=== PATIENT | female | born 1955 | race African-American/Black ===

== ENCOUNTER 2016-07-21 16:37 | Emergency (ER) | payer OTHER ==
[~2016-07-21] VITALS: Ht 165.1 cm; Wt 75.0 kg
[2016-07-21 16:39] VITALS: BP 140/77; PULSE 101; RESP 18; TEMP 98.6; O2SAT 94
--- NOTE | 2016-07-21 17:16 | PD ---
HPI Chief Complaint: Cold / Flu Symptoms Time Seen by Provider: 17:16 Travel History International Travel<30 days: No Contact w/Intl Traveler<30days: No Traveled to known affect area: No History of Present Illness HPI 60-year-old female presents to the emergency Department with complaint of nasal congestion, body aches and cough since yesterday. Reports fever of 101.0 last night. History of COPD. Does not use an inhaler. Reports chest tightness and feeling short of breath that is worse with exertion. Denies shortness of breath while at rest. Denies chest pain. Denies history of DVT or PE. Denies leg edema. Denies hemoptysis. Denies sore throat or ear pain. Negative abdominal pain, nausea, vomiting. Has taken ibuprofen for symptom relief. Has not taking any other medications or tried any other treatments to alleviate her symptoms. Allergies to aspirin. History of COPD and hypertension. No other modifying factors or associated signs and symptoms. PFSH Past Medical History Arthritis: Yes Asthma: No Autoimmune Disease: No Blood Disorders: No Anxiety: No Depression: No Heart Rhythm Problems: No Cancer: No Cardiac Catheterization: Yes Cardiovascular Problems: Yes High Cholesterol: Yes Chemotherapy: No Chest Pain: Yes (prior to heart attack and occasionally post stent placement) Congestive Heart Failure: No COPD: No Cerebrovascular Accident: No Coronary Artery Disease: Yes Diabetes: No Diminished Hearing: No Endocrine: No Gastrointestinal Disorders: Yes (diarrhea after eating) GERD: No Glaucoma: No Genitourinary: No Headaches: No Hepatitis: No Hiatal Hernia: No Hypertension: Yes Immune Disorder: No Implanted Vascular Access Dvce: No Kidney Stones: No Musculoskeletal: Yes (Pt states her hands and feet ache and get stiff on occasion. ) Neurologic: No Psychiatric: No Reproductive: Yes Respiratory: Yes (Shortness of breath) Immunizations Current: No Migraines: Yes Myocardial Infarction: Yes Radiation Therapy: No Renal Failure: No Seizures: No Sickle Cell Disease: No Sleep Apnea: Yes Thyroid Disease: No Ulcer: No PNEUMOCCOCAL Vaccine (Year): 3 ?: Not Menopausal: Yes Ectopic : Yes (1980) Tubal Ligation: Yes Past Surgical History Abdominal Surgery: Yes ( polyp removal) AICD: No Appendectomy: No Arteriovenous Shunt: No Cardiac Surgery: Yes (stent placement) Cholecystectomy: Yes Coronary Stent: Yes (X 1) Ear Surgery: No Endocrine Surgery: No Eye Surgery: No Genitourinary Surgery: No Gynecologic Surgery: Yes (hysterectomy, Tubal ) Hysterectomy: Yes (2002) Insulin Pump: No Joint Replacement: No Oral Surgery: No Pacemaker: No Thoracic Surgery: No Other Surgery: Yes (gallbladdder, hystectomy, tubal pregnancies) Social History Alcohol Use: No Tobacco Use: Yes (05/20 PPD) Substance Use: No Allergies-Medications (Allergen,Severity, Reaction): Coded Allergies: Aspirin (Verified Allergy, Intermediate, Hives, 07/21/16) Reported Meds & Prescriptions Reported Meds & Active Scripts Active Nasonex Nasal [place] (Mometasone Furoate) 50 Mcg/Act Naspr 2 [place] EACH NARE DAILY PRN Tessalon Perles (Benzonatate) 100 Mg Cap 100 Mg PO TID PRN Deltasone (Prednisone) 20 Mg Tab 40 Mg PO DAILY 4 Days start 07/22/2016 Proair Hfa 8.5 GM Inh (Albuterol Sulfate) 90 Mcg/Act Aer 2 Puff INH Q4-6H PRN 108 mcg/actuation Review of Systems Except as stated in HPI: all other systems reviewed are Neg Physical Exam Narrative GENERAL: Well-nourished, well-developed female patient, in no acute distress SKIN: Warm and dry. No rash. HEAD: Atraumatic. Normocephalic. EYES: Pupils equal and round at 3 mm with brisk reaction. No scleral icterus. No injection or drainage. PERRLA. ENT: Mucosa pink and moist. No erythema or exudates. No uvular edema. No uvular , palatal, or tonsillar deviation. Airway patent. Nasal congestion. EARS: Bilateral pinnae and external canals appear within normal limits. Bilateral tympanic membranes without erythema, dullness or perforation. NECK: Trachea midline. No lymphadenopathy. CARDIOVASCULAR: Regular rate and rhythm. No murmur appreciated. RESPIRATORY: No accessory muscle use. Clear throughout with decreased lung sounds in bilateral bases to auscultation. Breath sounds equal bilaterally. No retractions or tachypnea. No Audible wheezing. GASTROINTESTINAL: Abdomen soft, non-tender, nondistended. Hepatic and splenic margins not palpable. Bowel sounds are active 4 quadrants. MUSCULOSKELETAL: No obvious deformities. No clubbing. No cyanosis. No edema. NEUROLOGICAL: Awake and alert. Oriented 3. No obvious cranial nerve deficits. Motor grossly within normal limits. Normal speech. Moves all extremities. 5/5 strength to all extremities. PSYCHIATRIC: Appropriate mood and affect; insight and judgment normal. Data Data Last Documented VS Vital Signs Date Time Temp Pulse Resp B/P Pulse Ox O2 Delivery O2 Flow Rate FiO2 07/21/16 16:39 98.6 101 18 140/77 94 Orders Chest, Single Ap (07/21/16 17:16) Prednisone (Deltasone) (07/21/16 17:30) Albuterol Neb (Albuterol Neb) (07/21/16 17:30) Influenzae A/B Antigen (07/21/16 17:16) Ibuprofen (Motrin) (07/21/16 17:30) MDM Medical Decision Making Medical Screen Exam Complete: Yes Emergency Medical Condition: Yes Medical Record Reviewed: Yes Differential Diagnosis Viral illness, COPD exacerbation, less likely PE Narrative Course 60-year-old female with cold/flu symptoms 2 days. Patient is afebrile and nontoxic appearing in the ER. She reports fever of 101.0 last night at home. History of COPD. Patient is in no acute distress and without retractions or tachypnea. Oxygen saturation is 94% on room air. Lungs are clear with decreased lung sounds bilateral bases. Albuterol nebulizer, Deltasone ordered. Chest x-ray ordered. Influenza ordered. 1801: Chest x-ray with no acute findings. 183: Influenza negative. Patient reports improvement in symptoms after breathing treatment. She denies chest tightness or shortness of breath. Lungs are clear and equal bilaterally with improved air flow. Heart rate recheck is approximately 80-90 bpm. Pro-air inhaler, Tessalon Perles, Deltasone, Nasonex nasal spray prescribed for home. Patient verbalizes understanding and agreement with treatment plan. Patient is medically cleared and stable for discharge. Discussed reasons to return to the emergency department. Instructed patient to follow up with primary care provider. Patient agrees with treatment plan. The patients vital signs are stable and the patient is stable for outpatient follow-up and treatment. Patient discharged home, stable and in no acute distress. Diagnosis Primary Impression: Acute bronchitis Qualified Code: J20.9 - Acute bronchitis, unspecified organism Referrals: Primary Care Physician Patient Instructions: Acute Bronchitis (ED), General Instructions, Safe Use of Cough and Cold Medicines (ED) Departure Forms: Tests/Procedures, Work Release Enter return to work date: Jul 23, 2016 Additional Instructions: Use Albuterol inhaler as prescribed Take oral steroids as prescribed and complete full course Use Tessalon Perles as prescribed to decrease coughing spasms [id number] decongestants or antihistamines as directed and as needed for symptom management Your cough can last 4-6 weeks Drink plenty of fluids to prevent dehydration Use hot air humidifier to decrease cough exacerbation Turn off ceiling fans and sleep with head of bed elevated Avoid triggers such as second hand smoke, dust, known allergens Follow-up with your primary care provider Return to the emergency department immediately with worsening of symptoms Scripts Mometasone Nasal [place] (Nasonex Nasal [place])50 Mcg/Act Naspr2 [place] EACH NARE DAILY PRN (NASAL CONGESTION) #1 BOTTLE Ref 0 Prov:Kera MatsonP 07/21/16 Benzonatate (Tessalon Perles)100 Mg [id number] Mg PO TID PRN (COUGH) #20 CAP Ref 0 Prov:Kera Matson 07/21/16 Prednisone (Deltasone)20 Mg Tab40 Mg PO DAILY 4 Days Ref 0 start 07/22/2016 Prov:Kera MatsonP 07/21/16 Albuterol 8.5 GM Inh (Proair Hfa 8.5 GM Inh)90 Mcg/Act Aer2 Puff INH Q4-6H PRN ( SOB/WHEEZING) #1 INHALER Ref 0 108 mcg/actuation Prov:Kera MatsonP 07/21/16 Disposition: 01 DISCHARGE HOME Condition: Stable Kera Matson Jul 21, 2016 17:16
[2016-07-21] MEDS ORDERED: RESP: ALBUTEROL 2.5 MG/3 ML NEB (SCH) INH ONE (17:30)
[2016-07-21] MEDS ORDERED: IBUPROFEN 800 MG TAB PO ONE (17:30)
[2016-07-21] MEDS ORDERED: predniSONE 20 MG TAB PO ONE (17:30)
--- NOTE | 2016-07-21 17:51 | RADRPT ---
EXAM DATE/TIME: 07/21/2016 17:23 [facility] COMPARISON: CHEST SINGLE AP, June 26, 2014, 21:09. INDICATIONS : Cough MEDICAL HISTORY : None. SURGICAL HISTORY : None. ENCOUNTER: Initial ACUITY: 1 day PAIN SCORE: 5/10 LOCATION: Bilateral chest FINDINGS: Cardiomegaly. Clear lungs. Degenerative changes of the spine. CONCLUSION: No acute disease. Harvinder Sumner MD on July 21, 2016 at 17:49 Board Certified Radiologist. This report was verified electronically.
[2016-07-21] MEDS ORDERED: ALBUAER3 INH (18:03)
[2016-07-21] MEDS ORDERED: MOME17I EACH NARE (18:03)
[2016-07-21] MEDS ORDERED: PRED-503 PO (18:03)
[2016-07-21] MEDS ORDERED: BENZ100 PO (18:03)
== END 2016-07-21 18:59 | disposition home or self-care (01) ==
LOC: NEPB 16:37
DX: J44.0 Chronic obstructive pulmonary disease with (acute) lower respiratory infection (principal); J20.9 Acute bronchitis, unspecified; I10 Essential (primary) hypertension; I25.10 Atherosclerotic heart disease of native coronary artery without angina pectoris; I25.2 Old myocardial infarction; F17.200 Nicotine dependence, unspecified, uncomplicated
CPT/HCPCS: 71010; 87804; 94664; 99283; J7512; J7613

== ENCOUNTER 2017-06-12 17:18 | Emergency (ER) | payer OTHER ==
[~2017-06-12] VITALS: Ht 157.5 cm; Wt 89.0 kg
[~2017-06-12 17:18] MED LIST: ALBUAER3 INH; BENZ100 PO; MOME17I EACH NARE; PRED-503 PO
[2017-06-12 17:19] VITALS: BP 134/80; PULSE 96; RESP 14; TEMP 98.4; O2SAT 95
[2017-06-12] MEDS ORDERED: SODIUM CHLORIDE 0.9% FLUSH 10 ML FLUSH IV FLUSH PRN (19:45)
[2017-06-12] MEDS ORDERED: SOD PHOSPHATE/SOD BIPHOSPHATE (ADULT) ENEMA 133ML RECTAL ONE (19:45)
[2017-06-12] MEDS ORDERED: DIATRIZOATE MEGLUM/DIATRIZOATE SOD 9 ML CUP PO ONE (19:45)
[2017-06-12 20:43] LABS: BASOPHIL # 0.1 TH/MM3 (0-0.2); BASOPHIL % 1.2 % (0.0-2.0); EOSINOPHIL # 0.3 TH/MM3 (0-0.4); HEMATOCRIT 38.4 % (35.0-46.0); HEMOGLOBIN 12.7 GM/DL (11.6-15.3); LYMPH % 31.1 % (9.0-44.0); LYMPHOCYTE # 2.1 TH/MM3 (1.0-4.8); MEAN CELL VOLUME 84.1 FL (80.0-100.0); MEAN CORPUSCULAR HEMOGLOBIN 27.9 PG (27.0-34.0); MEAN CORPUSCULAR HGB CONC 33.2 % (32.0-36.0); MEAN PLATELET VOLUME 7.4 FL (7.0-11.0); MONO % 2.7 % (0.0-8.0); MONOCYTE # 0.2 TH/MM3 (0-0.9); PLATELET COUNT 274 TH/MM3 (150-450); RED BLOOD COUNT 4.56 MIL/MM3 (4.00-5.30); RED CELL DISTRIBUTION WIDTH 13.4 % (11.6-17.2); WHITE BLOOD COUNT 6.6 TH/MM3 (4.0-11.0)
[2017-06-12 20:52] LABS: BICARBONATE 28.7 MEQ/L (21.0-32.0); CALCIUM 8.8 MG/DL (8.5-10.1); CREATININE 0.93 MG/DL (0.50-1.00)
[2017-06-12] MEDS ORDERED: IOHEXOL 350 MG/ML 10 ML VIAL (for RAD DIAG) IVCONTRAST ONE (21:30)
--- NOTE | 2017-06-12 21:50 | RADRPT ---
EXAM DATE/TIME: 06/12/2017 21:23 [facility] COMPARISON: No previous studies available for comparison. INDICATIONS : Patient complains of boils on rectum, fever and diarrhea. Evlauate for abscess. IV CONTRAST: 80 cc Omnipaque 350 (iohexol) IV ORAL CONTRAST: No oral contrast ingested. RADIATION DOSE: 15.40 CTDIvol (mGy) MEDICAL HISTORY : Cardiovascular disease. SURGICAL HISTORY : Cholecystectomy. Hysterectomy. ENCOUNTER: Initial ACUITY: 2 weeks PAIN SCALE: 6/10 LOCATION: buttock TECHNIQUE: Volumetric scanning of the pelvis was performed. Using automated exposure control and adjustment of t he mA and/or kV according to patient size, radiation dose was kept as low as reasonably achievable to obtain optimal diagnostic quality images. DICOM format image data is available electronically for review and comparison. FINDINGS: Mild subcutaneous induration and edema seen inferomedially of the right gluteal fold. This is well di stal to the perineum. No organize fluid collection is seen. No acute inflammatory changes are seen in the pelvic cavity. There are diverticula of the visualized sigmoid colon but no diverticulitis. Isch iorectal fossa is normal. Patient has had previous hysterectomy. CONCLUSION: Mild right gluteal cellulitis inferomedially without abscess. Americo Hughes MD on June 12, 2017 at 21:43 Board Certified Radiologist. This report was verified electronically.
[2017-06-12] MEDS ORDERED: CLIN150C14 PO (22:10)
--- NOTE | 2017-06-12 22:10 | PD ---
HPI Chief Complaint: Skin Problem Time Seen by Provider: 19:28 Travel History International Travel<30 days: No Contact w/Intl Traveler<30days: No Traveled to known affect area: No History of Present Illness HPI 61-year-old female complains of pain and induration in the region of the Botox. She thinks she might have an abscess. Duration about 1 day. No fever. Pain is worse with palpation. It's constant. It is moderately severe. No similar prior episodes. No blood in the stool or diarrhea. PFSH Past Medical History Arthritis: Yes Asthma: No Autoimmune Disease: No Blood Disorders: No Anxiety: No Depression: No Heart Rhythm Problems: No Cancer: No Cardiac Catheterization: Yes Cardiovascular Problems: Yes High Cholesterol: Yes Chemotherapy: No Chest Pain: Yes (prior to heart attack and occasionally post stent placement) Congestive Heart Failure: No COPD: No Cerebrovascular Accident: No Coronary Artery Disease: Yes Diabetes: No Diminished Hearing: No Endocrine: No Gastrointestinal Disorders: Yes (diarrhea after eating) GERD: No Glaucoma: No Genitourinary: No Headaches: No Hepatitis: No Hiatal Hernia: No Hypertension: Yes Immune Disorder: No Implanted Vascular Access Dvce: No Kidney Stones: No Musculoskeletal: Yes (Pt states her hands and feet ache and get stiff on occasion. ) Neurologic: No Psychiatric: No Reproductive: Yes Respiratory: Yes (Shortness of breath) Immunizations Current: No Migraines: Yes Myocardial Infarction: Yes Radiation Therapy: No Renal Failure: No Seizures: No Sickle Cell Disease: No Sleep Apnea: Yes Thyroid Disease: No Ulcer: No Tetanus Vaccination: Unknown PNEUMOCCOCAL Vaccine (Year): 3 ?: Not Menopausal: Yes : 2 Para: 1 Ectopic : Yes (1980) Tubal Ligation: Yes Past Surgical History Abdominal Surgery: Yes ( polyp removal) AICD: No Appendectomy: No Arteriovenous Shunt: No Cardiac Surgery: Yes (stent placement) Cholecystectomy: Yes Coronary Stent: Yes (X 1) Ear Surgery: No Endocrine Surgery: No Eye Surgery: No Genitourinary Surgery: No Gynecologic Surgery: Yes (hysterectomy, Tubal ) Hysterectomy: Yes (2002) Insulin Pump: No Joint Replacement: No Oral Surgery: No Pacemaker: No Thoracic Surgery: No Other Surgery: Yes (gallbladdder, hystectomy, tubal pregnancies) Social History Alcohol Use: No Tobacco Use: Yes (12 PPD) Substance Use: No Allergies-Medications (Allergen,Severity, Reaction): Coded Allergies: aspirin (Unverified Allergy, Intermediate, Hives, 06/12/17) Reported Meds & Prescriptions Reported Meds & Active Scripts Active Clindamycin (Clindamycin HCl) 150 Mg Cap 450 Mg PO TID 14 Days Review of Systems Except as stated in HPI: all other systems reviewed are Neg Physical Exam Narrative GENERAL: 61 yo F, WNWD RECTAL: Cellulitis along medial aspect of R gluteus. + Tenderness on rectal exam , potentially c/w abscess. SKIN: Warm and dry. HEAD: Atraumatic. Normocephalic. EYES: Pupils equal and round. No scleral icterus. No injection or drainage. NECK: Trachea midline. No JVD. CARDIOVASCULAR: Regular rate and rhythm. RESPIRATORY: No accessory muscle use. Clear to auscultation. Breath sounds equal bilaterally. GASTROINTESTINAL: Abdomen soft, non-tender, nondistended. Hepatic and splenic margins not palpable. MUSCULOSKELETAL: Extremities without clubbing, cyanosis, or edema. No obvious deformities. NEUROLOGICAL: Awake and alert. No obvious cranial nerve deficits. Motor grossly within normal limits. Five out of 5 muscle strength in the arms and legs. Normal speech. PSYCHIATRIC: Appropriate mood and affect; insight and judgment normal. Data Data Last Documented VS Vital Signs Date Time Temp Pulse Resp B/P (MAP) Pulse Ox O2 Delivery O2 Flow Rate FiO2 06/12/17 22:55 06/12/17 17:19 98.4 96 14 95 Orders Orders Basic Metabolic Panel (Bmp) (06/12/17 19:33) Complete Blood Count With Diff (06/12/17 19:33) Iv Access Insert/Monitor (06/12/17 19:33) Ecg Monitoring (06/12/17 19:33) Oximetry (06/12/17 19:33) Sodium Chloride 0.9% Flush (Ns Flush) (06/12/17 19:45) Ct Pelvis W Iv Contrast(Rout) (06/12/17 ) Fleets Enema (Adult) (Fleets Enema (Adul (06/12/17 19:45) Diatrizoate Liq ( Gastroview Liq) (06/12/17 19:45) Iohexol 350 Inj (Omnipaque 350 Inj) (06/12/17 21:30) Piperacil-Tazo 4.5 Gm Premix (Zosyn 4.5 (06/12/17 22:15) Ed Discharge Order (06/12/17 22:10) Acetamin-Hydrocod 325-5 Mg ([employer] 5-325 (06/12/17 23:00) Labs Laboratory Tests Test 06/12/17 20:00 White Blood Count 6.6 TH/MM3 Red Blood Count 4.56 MIL/MM3 Hemoglobin 12.7 GM/DL Hematocrit 38.4 % Mean Corpuscular Volume 84.1 FL Mean Corpuscular Hemoglobin 27.9 PG Mean Corpuscular Hemoglobin Concent 33.2 % Red Cell Distribution Width 13.4 % Platelet Count 274 TH/MM3 Mean Platelet Volume 7.4 FL Neutrophils (%) (Auto) 61.0 % Lymphocytes (%) (Auto) 31.1 % Monocytes (%) (Auto) 2.7 % Eosinophils (%) (Auto) 4.0 % Basophils (%) (Auto) 1.2 % Neutrophils # (Auto) 4.0 TH/MM3 Lymphocytes # (Auto) 2.1 TH/MM3 Monocytes # (Auto) 0.2 TH/MM3 Eosinophils # (Auto) 0.3 TH/MM3 Basophils # (Auto) 0.1 TH/MM3 CBC Comment DIFF FINAL Differential Comment Blood Urea Nitrogen 11 MG/DL Creatinine 0.93 MG/DL Random Glucose 91 MG/DL Calcium Level 8.8 MG/DL Sodium Level 138 MEQ/L Potassium Level 3.7 MEQ/L Chloride Level 105 MEQ/L Carbon Dioxide Level 28.7 MEQ/L Anion Gap 4 MEQ/L Estimat Glomerular Filtration Rate 75 ML/MIN MDM Medical Decision Making Medical Screen Exam Complete: Yes Emergency Medical Condition: Yes Medical Record Reviewed: Yes Differential Diagnosis abscess, cellulitis, sepsis Narrative Course CBC & BMP Diagram 06/12/17 20:00 Calcium Level 8.[address] 06/12/17 0000 Signed Impressions: Service Date/Time: May 21:23 - CONCLUSION: Mild right gluteal cellulitis inferomedially without abscess. Americo Hughes MD The patient is resting comfortably and feels better, is alert and in no distress. The patients results and examination findings were discussed. The repeat examination is unremarkable and benign. The history, exam, diagnostic testing, and current condition do not suggest any significant pathology to warrant further testing, continued ED treatment, admission, or surgical evaluation at this point. The vital signs have been stable. The patient does not have uncontrollable pain, intractable vomiting, or other significant symptoms. The patient's condition is stable and appropriate for discharge. The patient will pursue further outpatient evaluation with a primary care physician or other designated or consulting physician as indicated in the discharge instructions. The patient expressed understanding and was agreeable with this plan. Diagnosis Primary Impression: Cellulitis and abscess of buttock Referrals: Jose Mcgowan MD 1 day Med/Other Pt SpecificInfo: Prescription(s) given Scripts Clindamycin (Clindamycin) 150 Mg Cap 450 MG PO TID for Infection for 14 Days, CAP 0 Refills Prov: Clemente Granado MD 06/12/17 Disposition: 01 DISCHARGE HOME Condition: Stable Clemente Granado MD Jun 12, 2017 22:10
[2017-06-12] MEDS ORDERED: PIPERACIL-TAZO 4.5 GM PREMIX 100 ML IV ONE (22:15)
[2017-06-12] MEDS ORDERED: ACETAMINOPHEN/HYDROcodone 325 MG/5 MG TAB PO ONE (23:00)
== END 2017-06-12 23:07 | disposition home or self-care (01) ==
LOC: NEPD 17:18
DX: L03.115 Cellulitis of right lower limb (principal); L02.31 Cutaneous abscess of buttock
CPT/HCPCS: 72193; 80048; 85025; 96365; 99285; J2543; Q9963; Q9967

== ENCOUNTER 2018-05-31 12:22 | Inpatient (IN) ==
--- NOTE | 2018-05-31 12:52 | ED ---
HPI General Chief Complaint: Chest Pain Stated Complaint: Chest Pain Time Seen by Provider: 05/31/18 12:39 Source: patient Mode of arrival: ambulatory Limitations: no limitations History of Present Illness HPI narrative: 62-year-old female states she developed chest pain while she was sitting at [employer] it goes up into her neck and her arm on the left. It feels sharp. It is been constant. She states she also has numbness to her left lower face and her entire left arm and leg. She states she is also felt kind of weak over the past couple of days on that side. She states a couple years ago she had a stress test that was normal but denies other cardiac workup. She denies taking aspirin due to an allergy. She feels worse when she moves around. She denies other modifying factors. She denies any other concurrent complaints. Related Data Allergies Allergy/AdvReac Type Severity Reaction Status Date / Time aspirin Allergy Intermediate Hives Verified 05/31/18 12:45 Review of Systems ROS: all other systems reviewed are negative [facility] Medical History Medical History Diverticulitis (Acute) H/O: hysterectomy (Acute) Hypertension (Acute) Surgical History Surgical History Hx of cholecystectomy (Acute) Social History Social History Substance History: No History of Abuse Smoking Status: Current every day smoker Tobacco Type: Cigarettes How Often Do You Have a Drink Containing Alcohol: Never Recent Travel in [facility] within the Last 8 Weeks: No Recent Out of Country Travel within the Last 8 Weeks: No Immunization History Tetanus Immunization: Unsure Exam Narrative Exam Narrative: GENERAL: 62 y/o female in no apparent distress SKIN: Focused skin assessment warm/dry. HEAD: Atraumatic. Normocephalic. EYES: Pupils equal and round. No scleral icterus. No injection or drainage. ENT: No nasal bleeding or discharge. Mucous membranes pink and moist. NECK: Trachea midline. CARDIOVASCULAR: Regular rate and rhythm. RESPIRATORY: No accessory muscle use. Clear to auscultation. Breath sounds equal bilaterally. GASTROINTESTINAL: Abdomen soft, non-tender, nondistended. MUSCULOSKELETAL: No obvious deformities. No clubbing. No cyanosis. No edema. NEUROLOGICAL: Awake and alert. Decreased grasp on the left, 4 out of 5 to left lower extremity. Patient notes numbness to entire left side. Normal speech. PSYCHIATRIC: Appropriate mood and affect; insight and judgment normal. Course Reevaluation(s) Reevaluation #1: patient updated and agrees to admit Consultations Consultation #1: dr tucker agrees to admit Initial Documented Vital Signs Temperature 98.4 F 05/31/18 12:27 Pulse Rate 93 H 05/31/18 12:27 Respiratory Rate 20 05/31/18 12:27 Blood Pressure 177/77 H 05/31/18 12:27 Pulse Oximetry 98 05/31/18 12:27 Last Documented Vital Signs Temperature 98.4 F 05/31/18 12:27 Pulse Rate 77 05/31/18 13:40 Respiratory Rate 18 05/31/18 13:40 Blood Pressure 135/64 05/31/18 13:40 Pulse Oximetry 97 05/31/18 13:40 Medical Decision Making MDM Narrative Medical decision making narrative: We will check blood work, imaging and reevaluate. Patient with 2 days of weakness puts her outside the stroke alert window. Aspirin was held due to allergy. Will check workup and reevaluate Medical Screen Exam Complete: Yes Emergency Medical Condition: Yes Differential Diagnosis Differential Diagnosis: TIA, stroke, bleed, WI, gastritis Lab Data Result diagrams: 05/31/18 13:05 05/31/18 13:05 Lab Results 05/31/18 05/31/18 05/31/18 Range/Units 13:05 13:05 13:05 WBC 4.7 (4.0-11.0) th/mm3 RBC 4.77 (4.00-5.30) mil/mm3 Hgb 13.5 (11.6-15.3) gm/dL Hct 41.4 (35.0-46.0) % MCV 86.8 (80.0-100.0) fL MCH 28.2 (27.0-34.0) pg MCHC 32.5 (32.0-36.0) % RDW 13.8 (11.6-17.2) % Plt Count 295 (150-450) th/mm3 MPV 7.7 (7.0-11.0) fL Neut % (Auto) 53.9 (16.0-70.0) % Lymph % (Auto) 37.3 (9.0-44.0) % [place] % (Auto) 2.6 (0.0-8.0) % Eos % (Auto) 4.5 H (0.0-4.0) % Baso % (Auto) 1.7 (0.0-2.0) % Neut # (Auto) 2.5 (1.8-7.7) th/mm3 Lymph # (Auto) 1.7 (1.0-4.8) th/mm3 [place] # (Auto) 0.1 (0.0-0.9) th/mm3 Eos # (Auto) 0.2 (0.0-0.4) th/mm3 Baso # (Auto) 0.1 (0.0-0.2) th/mm3 WBC Differential . Differential Comment Auto diff final PT 10.0 (9.8-11.6) sec INR 1.0 Ratio APTT 28.9 (23.4-31.7) sec Sodium 140 (136-145) meq/L Potassium 3.9 (3.5-5.1) meq/L Chloride 110 H (98-107) meq/L Carbon Dioxide 22.2 (21.0-32.0) meq/L Anion Gap 8 (5-15) meq/L BUN 14 (7-18) mg/dL Creatinine 0.71 (0.50-1.00) mg/dL Estimated GFR Greater than 89 (>89) mL/min Random Glucose 90 (74-106) mg/dL Calcium 8.5 (8.5-10.1) mg/dL Magnesium 2.2 (1.5-2.5) mg/dL Total Bilirubin 0.3 (0.2-1.0) mg/dL AST 21 (15-37) U/L ALT 19 (10-53) U/L Alkaline Phosphatase 117 (45-117) U/L Total Creatine Kinase 70 (26-192) U/L Troponin I Less than 0.02 L (0.02-0.05) ng/mL Total Protein 7.7 (6.4-8.2) g/dL Albumin 3.3 L (3.4-5.0) g/dL Imaging Data Radiologist's impression: Chest X-Ray 05/31/18 12:39 CONCLUSION: 1. Hypoinflation with minimal atelectasis/scarring in the left lingula. Lungs are otherwise clear. 2. Heart size is upper limits of normal and well compensated Head CT 05/31/18 12:45 CONCLUSION: Negative exam. No change from prior. . Discharge Plan Discharge Disposition Patient Disposition: ED Admit(ED Internal Use Only) Discharge Order Discharge Orders: ED Use Only Admit Order (Routine); Ordered 05/31/18 Ordered By: Penny Toro Discharge Details Diagnosis: Chest pain, Numbness and tingling of left upper and lower extremity Physicians Team ED Provider: Penny Toro Primary Care Provider: Primary Care Annika Fischer Attending Provider: Ava Tucker Discharge Interventions Interventions: Vital Signs Last Done: 05/31/18 12:30 Status ED Status: Admitted Observation Patient
--- NOTE | 2018-05-31 12:59 | XR ---
EXAM DATE: 05/31/2018 12:55 PM EST AGE/SEX: 62 years / Female INDICATIONS: Chest pain. CLINICAL DATA: This is the patient's initial encounter. Patient reports that signs and symptoms have been present for 1 day and indicates a pain score of 8/10. MEDICAL/SURGICAL HISTORY: . Cardiovascular disease. SURGICAL HISTORY : Cholecystectomy. Hystere ctomy. . [place] [facility] [place]. . FINDINGS: A single AP view of the chest demonstrates the lungs to be symmetrically hypoinflated with some atele ctasis or scarring in the left lingula. Lungs are otherwise clear. Accounting for low lung volumes, h eart size is upper limits of normal and well compensated. Osseous structures are intact.. CONCLUSION: 1. Hypoinflation with minimal atelectasis/scarring in the left lingula. Lungs are otherwise clear. 2. Heart size is upper limits of normal and well compensated Electronically signed by: Kervin Bennett MD Board Certified Radiologist 05/31/2018 12:58 PM EST
[2018-05-31 13:31] LABS: Baso # (Auto) 0.1 th/mm3 (0.0-0.2); Baso % (Auto) 1.7 % (0.0-2.0); Eos # (Auto) 0.2 th/mm3 (0.0-0.4); Eos % (Auto) 4.5 % (0.0-4.0); Hematocrit 41.4 % (35.0-46.0); Hemoglobin 13.5 gm/dL (11.6-15.3); Lymph # (Auto) 1.7 th/mm3 (1.0-4.8); Lymph % (Auto) 37.3 % (9.0-44.0); Mean Corpuscular HGB Conc 32.5 % (32.0-36.0); Mean Corpuscular Hemoglobin 28.2 pg (27.0-34.0); Mean Corpuscular Volume 86.8 fL (80.0-100.0); Mean Platelet Volume 7.7 fL (7.0-11.0); Mono # (Auto) 0.1 th/mm3 (0.0-0.9); Mono % (Auto) 2.6 % (0.0-8.0); Neut # (Auto) 2.5 th/mm3 (1.8-7.7); Neut % (Auto) 53.9 % (16.0-70.0); Platelet Count 295 th/mm3 (150-450); Red Blood Count 4.77 mil/mm3 (4.00-5.30); Red Cell Distribution Width 13.8 % (11.6-17.2); White Blood Count 4.7 th/mm3 (4.0-11.0)
[2018-05-31 13:42] LABS: Activated Partial Thrombo Time 28.9 sec (23.4-31.7)
[2018-05-31 13:44] LABS: Alanine Aminotransferase 19 U/L (10-53); Albumin 3.3 g/dL (3.4-5.0); Anion Gap 8 meq/L (5-15); Aspartate Aminotransferase 21 U/L (15-37); Blood Urea Nitrogen 14 mg/dL (7-18); Calcium 8.5 mg/dL (8.5-10.1); Carbon Dioxide 22.2 meq/L (21.0-32.0); Chloride 110 meq/L (98-107); Glomerular Filtration Rate Greater Than 89 mL/min (>89); Glucose,Random 90 mg/dL (74-106); Magnesium 2.2 mg/dL (1.5-2.5); Potassium 3.9 meq/L (3.5-5.1); Sodium 140 meq/L (136-145)
[2018-05-31 13:48] LABS: Alkaline Phosphatase 117 U/L (45-117); Total Protein 7.7 g/dL (6.4-8.2)
[2018-05-31 13:49] LABS: Creatine Kinase 70 U/L (26-192)
--- NOTE | 2018-05-31 13:50 | CT ---
EXAM DATE: 05/31/2018 1:39 PM EST AGE/SEX: 62 years / Female INDICATIONS: Left side facial, arm and leg numbness CLINICAL DATA: This is the patient's initial encounter. Patient reports that signs and symptoms have been present for 1 day and indicates a pain score of 8/10. MEDICAL/SURGICAL HISTORY: Diverticulitis. Hypertension. Hysterectomy. Cholecystectomy. RADIATION DOSE: 38.73 CTDI (mGy) [place] [facility] [place]18[place]. . TECHNIQUE: CT of the head without contrast. Using automated exposure control and adjustment of the mA and/or kV according to patient size, radiation dose was kept as low as reasonably achievable to ob tain optimal diagnostic quality images. DICOM format image data is available electronically for revi ew and comparison. FINDINGS: Cerebrum: The ventricles are normal for age. No evidence of midline shift, mass lesion, hemorrhage or acute infarction. No extraaxial fluid collections are seen. Posterior Fossa: The cerebellum and brainstem are intact. The 4th ventricle is midline. The cerebe llopontine angle is unremarkable. Extracranial: The visualized portion of the orbits is intact. Skull: The calvaria is intact. No evidence of skull fracture. CONCLUSION: Negative exam. No change from prior. . Electronically signed by: Kervin Bennett MD Board Certified Radiologist 05/31/2018 1:49 PM EST
--- NOTE | 2018-05-31 15:13 | MR ---
EXAM DATE: 05/31/2018 3:05 PM EST AGE/SEX: 62 years / Female INDICATIONS: Left sided weakness. CLINICAL DATA: This is the patient's initial encounter. Patient reports that signs and symptoms have been present for 1 day and indicates a pain score of 4/10. MEDICAL/SURGICAL HISTORY: Diverticulitis. Hypertension. Cholecystectomy. Hysterectomy. COMPARISON: [facility] – [place], [place] HEAD W/O CONTRAST, 05/31/2018. . TECHNIQUE: Multiplanar, multisequence examination of the brain was performed without contrast. FINDINGS: Cerebrum: The ventricles are normal for age. No evidence of midline shift, mass lesion, hemorrhage or acute infarction. No extraaxial fluid collections are seen. The pituitary gland and suprasellar cistern are normal in configuration. White Matter: Some periventricular and scattered deep white matter tract areas of increased T2 FLAIR signal intensity are characteristic of mild small vessel ischemic demyelination Posterior Fossa: The cerebellum and brainstem are intact. The 4th ventricle is midline. The cerebel lopontine angle is unremarkable. The cerebellar tonsils are normal in position. Diffusion Imaging: No focal areas of restricted diffusion are seen. No evidence of acute infarction . Extracranial: The visualized portions of the orbits and paranasal sinuses are unremarkable. CONCLUSION: 1. Mild chronic changes with some periventricular and scattered deep white matter tracts small vesse l ischemic demyelination. 2. Nothing acute. Electronically signed by: Kervin Bennett MD Board Certified Radiologist 05/31/2018 3:11 PM EST
--- NOTE | 2018-05-31 16:21 | P.HPIM ---
History of Present Illness Service: 62-year-old female with no significant medical history presented to the emergency room with complaint of chest pain while she was sitting at [employer]. She reports the pain radiated up her neck and down her left arm. She reports it as sharp. Pain is intermittent and worse with movement. She states over the past 2 days she has been feeling mild weakness involving her left side. She did not have any issues with ambulation. She denies any lightheadedness, no headache or change in vision. Primary Care Physician: No Primary Care Physician Review of Systems Review of Systems: all other systems reviewed are negative [facility] Medical History Medical History Diverticulitis (Acute) H/O: hysterectomy (Acute) Hypertension (Acute) Surgical History Surgical History Hx of cholecystectomy (Acute) Social History Social History Substance History: No History of Abuse Second Hand Smoke Exposure: No Smoking Status: Current every day smoker Tobacco Type: Cigarettes How Often Do You Have a Drink Containing Alcohol: Never Recent Travel in [facility] within the Last 8 Weeks: No Recent Out of Country Travel within the Last 8 Weeks: No Immunization History Tetanus Immunization: Unsure Medications and Allergies Allergies Allergy/AdvReac Type Severity Reaction Status Date / Time aspirin Allergy Intermediate Hives Verified 05/31/18 12:45 Home Medications Medication Instructions Recorded Confirmed Type No Known Home Medications 05/31/18 05/31/18 History Active Medications: Active Medications Sodium Chloride (Ns Flush) 2 ml IV.FLUSH UNSCH PRN PRN Reason: FLUSH AFTER USING IV ACCESS Physical Exam Vital signs: Vital Signs 05/31/18 12:27 05/31/18 12:30 05/31/18 12:39 Temperature 98.4 F Pulse Rate 93 H 85 87 Respiratory Rate 20 18 18 Blood Pressure 177/77 H 161/70 H 143/68 H Pulse Oximetry 98 97 96 05/31/18 13:40 05/31/18 14:35 Temperature Pulse Rate 77 78 Respiratory Rate 18 18 Blood Pressure 135/64 142/67 H Pulse Oximetry 97 Intake & Output 01/12/19 01/13/19 01/13/19 18:59 06:59 18:59 Weight 77.111 kg Narrative: CONSTITUTIONAL/GENERAL: This is an adequately nourished patient, in no apparent distress. Vital signs reviewed SKIN: No jaundice, rashes, or concerning lesions. Not diaphoretic. HEAD: Atraumatic. Normocephalic. EYES: Pupils equal and round and reactive. Extra ocular motions are intact. No scleral icterus. No injection or drainage. ENT: Hearing grossly normal. Nose without drainage. Throat without visible erythema, exudates, masses, or lesions. NECK: Trachea midline. Neck is supple, non-tender. No palpable thyroid enlargement or nodularity. CARDIOVASCULAR: Normal rate and regular rhythm without murmurs, gallops, or rubs. No JVD. Peripheral pulses 2+ and symmetric. RESPIRATORY/CHEST: Symmetric, unlabored respirations. Breath sounds equal and clear to auscultation bilaterally. No wheezes, crackles, rales, or rhonchi. GASTROINTESTINAL: Abdomen soft, non-tender, non-distended. No hepato- splenomegaly, or palpable masses. No guarding. Bowel sounds present. MUSCULOSKELETAL: Extremities without clubbing, cyanosis, or edema. No joint tenderness or effusion noted. No calf tenderness. No mottling or clubbing. NEUROLOGICAL: Awake and alert. Motor and sensory grossly within normal limits. Follows commands. Move all extremities spontaneously. 5 out of 5 strength in all extremities.. PSYCHIATRIC: No obvious mood problems. No apparent hallucinations or other psychotic thought process. Results Labs CBC & Chem 7: 05/31/18 13:05 05/31/18 13:05 Imaging Impressions Head MRI 05/31/18 00:00 CONCLUSION: 1. Mild chronic changes with some periventricular and scattered deep white matter tracts small vessel ischemic demyelination. 2. Nothing acute. Chest X-Ray 05/31/18 12:39 CONCLUSION: 1. Hypoinflation with minimal atelectasis/scarring in the left lingula. Lungs are otherwise clear. 2. Heart size is upper limits of normal and well compensated Head CT 05/31/18 12:45 CONCLUSION: Negative exam. No change from prior. . Caprini VTE Risk Assessment Caprini VTE Risk Assessment: No/Low Risk (score <= 1) Caprini Risk Assessment Model: Point Value = 1 Point Value = 2 Point Value = 3 Point Value = 5 Age 41-60 Minor surgery BMI > 25 kg/m2 Swollen legs Varicose veins or History of unexplained or recurrent spontaneous Oral contraceptives or hormone replacement Sepsis (< 1 month) Serious lung disease, including pneumonia (< 1 month) Abnormal pulmonary function Acute myocardial infarction Congestive heart failure (< 1 month) History of inflammatory bowel disease Medical patient at bed rest Age 61-74 Arthroscopic surgery Major open surgery (> 45 min) Laparoscopic surgery (> 45 min) Malignancy Confined to bed (> 72 hours) Immobilizing plaster cast Central venous access Age >= 75 History of VTE Family history of VTE Factor V Leiden Prothrombin [id number] Lupus anticoagulant Anticardiolipin antibodies Elevated serum homocysteine Heparin-induced thrombocytopenia Other congenital or acquired thrombophilia Stroke (< 1 month) Elective arthroplasty Hip, pelvis, or leg fracture Acute spinal cord injury (< 1 month) Prophylaxis Regimen: Total Risk Factor Score Risk Level Prophylaxis Regimen 0-1 Low Early ambulation 2 Moderate Order ONE of the following: *Sequential Compression Device (SCD) *Heparin 5000 units SQ BID 3-4 Higher Order ONE of the following medications: *Heparin 5000 units SQ TID *Enoxaparin/Lovenox 40 mg SQ daily (WT < 150 kg, CrCl > 30 mL/min) *Enoxaparin/Lovenox 30 mg SQ daily (WT < 150 kg, CrCl > 10-29 mL/min) *Enoxaparin/Lovenox 30 mg SQ BID (WT < 150 kg, CrCl > 30 mL/min) AND/OR *Sequential Compression Device (SCD) 5 or more Highest Order ONE of the following medications: *Heparin 5000 units SQ TID (Preferred with Epidurals) *Enoxaparin/Lovenox 40 mg SQ daily (WT < 150 kg, CrCl > 30 mL/min) *Enoxaparin/Lovenox 30 mg SQ daily (WT < 150 kg, CrCl > 10-29 mL/min) *Enoxaparin/Lovenox 30 mg SQ BID (WT < 150 kg, CrCl > 30 mL/min) AND *Sequential Compression Device (SCD) Assessment and Plan Plan 62-year-old female presented to the emergency room with complaint of chest pain and mild left-sided weakness that has been ongoing for the past 2 days. Rule out ACS: - Initial EKG and cardiac exam unremarkable - Suspect costochondritis. Will add Tylenol as needed for pain. - Trend serial cardiac enzymes - Monitor on telemetry - Enlarged heart on chest x-ray. Check 2D echocardiogram - Aspirin not given as patient is allergic. - Monitor blood pressure closely Rule out CVA: - Head CT unremarkable. Check MRI, carotid ultrasound. Unable to appreciate focal weakness on exam. History of hypertension: - Has not been on any medications. DVT PPx: SCDs Overall impression: Patient is a 62-year-old who presented with chest pain while at rest. She also reported left arm numbness. Need to rule out CVA and ACS. Suspect costochondritis as a cause for chest pain. Monitor on telemetry. If above workup negative, she can be discharged tomorrow. If chest pain continues, can consider stress test.
--- NOTE | 2018-05-31 17:18 | US ---
EXAM DATE: 05/31/2018 5:10 PM EST AGE/SEX: 62 years / Female INDICATIONS: Transient ischemic attack. CLINICAL DATA: This is the patient's initial encounter. Patient reports that signs and symptoms have been present for 1 day and indicates a pain score of 0/10. MEDICAL/SURGICAL HISTORY: Hypertension. Diverticulitis. Hysterectomy. Cholecystectomy. COMPARISON: No prior exams available for comparison. VELOCITY PARAMETERS: ICA/CCA Ratio: Right 2.12 , Left 1.62 ICA: Right 147 cm/sec, Left 119 cm/sec CCA: Right 69 cm/sec, Left 73 cm/sec ECA: Right 165 cm/sec, Left 236 cm/sec Vertebral: Right 71 cm/sec antegrade, Left 52 cm/sec antegrade FINDINGS: Right Carotid: Minimal noncalcified plaque in the carotid bulb.The waveforms are within normal limit s. Left Carotid: Minimal noncalcified plaque in the distal common carotid. The waveforms are within nor mal limits. Other: None. CONCLUSION: 1. Right Internal Carotid Artery: Minimal noncalcified plaquing in the carotid bulb. Doppler velocit ies and ratios suggest a 50-69% ICA stenosis. Elevated velocities in the external carotid may represe nt some degree of stenosis in this location as well. 2. Left Internal Carotid Artery: Minimal noncalcified plaquing in the distal common carotid artery w ith no sonographic or Doppler findings of a hemodynamically significant stenosis in the internal. Marisela vated external carotid velocities suggest stenosis in this region, however. 3. Antegrade flow in both vertebrals. Electronically signed by: Kervin Bennett MD Board Certified Radiologist 05/31/2018 5:16 PM EST
[2018-05-31] MEDS: Acetaminophen 325 MG Tablet PO PRN (20:41)
[2018-05-31 21:11] LABS: Creatine Kinase 55 U/L (26-192)
[2018-06-01] MEDS: Acetaminophen 325 MG Tablet PO PRN ×2 (06:24→21:13)
[2018-06-01 06:34] LABS: Chol/HDL Ratio 3.92 Ratio; HDL Cholesterol 48.1 mg/dL (40.0-60.0)
[2018-06-01 06:40] LABS: Creatine Kinase 50 U/L (26-192)
--- NOTE | 2018-06-01 13:38 | P.PNIM ---
Subjective Interval history: The patient still complained of a tightness in her chest. She also complained of pain from her neck down her left arm. She complained of numbness and tingling. She says she was unable to lift her left arm because of the pain. Discussed with nursing. Physical Exam Vital signs: Vital Signs 05/31/18 13:40 05/31/18 14:35 05/31/18 16:22 Temperature 98.1 F Pulse Rate 77 78 75 Respiratory Rate 18 18 18 Blood Pressure 135/64 142/67 H 111/70 Pulse Oximetry 97 05/31/18 16:24 05/31/18 20:00 05/31/18 21:20 Temperature 98.5 F Pulse Rate 84 75 Respiratory Rate 16 16 Blood Pressure 109/57 L Pulse Oximetry 99 92 L 06/01/18 00:00 06/01/18 00:14 06/01/18 04:00 Temperature 98.1 F 98.1 F 98.0 F Pulse Rate 72 71 65 Respiratory Rate 16 16 16 Blood Pressure 114/53 L 114/53 L 119/57 L Pulse Oximetry 96 96 98 06/01/18 07:00 06/01/18 08:00 06/01/18 11:18 Temperature 97.7 F 98.3 F Pulse Rate 66 69 67 Respiratory Rate 18 20 Blood Pressure 118/64 140/71 Pulse Oximetry 97 98 Intake & Output 05/31/18 06/01/18 06/01/18 18:59 06:59 18:59 Intake Total 480 / 480 Balance 480 / 480 Weight 77.111 kg Intake: Oral 480 / 480 Other: # Voids 3 Date of Last Bowel Movement 05/31/18 Weight On Admission 77.111 kg Narrative: GENERAL: No apparent distress. SKIN: Focused skin assessment warm/dry. HEAD: Atraumatic. Normocephalic. EYES: Pupils equal and round. No scleral icterus. No injection or drainage. ENT: No nasal bleeding or discharge. Mucous membranes pink and moist. NECK: Trachea midline. CARDIOVASCULAR: Regular rate and rhythm. RESPIRATORY: No accessory muscle use. Clear to auscultation. Breath sounds equal bilaterally. GASTROINTESTINAL: Abdomen soft, non-tender, nondistended. MUSCULOSKELETAL: Reproducible CP to palpation. No obvious deformities. No clubbing. No cyanosis. No edema. NEUROLOGICAL: Awake and alert. Decreased grasp on the left, 4 out of 5 in left upper and lower extremities. Patient notes numbness to entire left side. Normal speech. Urinary Catheter Management Female External: Cath placed during this visit: no Results Labs CBC & Chem 7: 05/31/18 13:05 05/31/18 13:05 Imaging Imaging: Impressions Carotid Doppler Study 05/31/18 00:00 CONCLUSION: 1. Right Internal Carotid Artery: Minimal noncalcified plaquing in the carotid bulb. Doppler velocities and ratios suggest a 50-69% ICA stenosis. Elevated velocities in the external carotid may represent some degree of stenosis in this location as well. 2. Left Internal Carotid Artery: Minimal noncalcified plaquing in the distal common carotid artery with no sonographic or Doppler findings of a hemodynamically significant stenosis in the internal. Elevated external carotid velocities suggest stenosis in this region, however. 3. Antegrade flow in both vertebrals. Head MRI 05/31/18 00:00 CONCLUSION: 1. Mild chronic changes with some periventricular and scattered deep white matter tracts small vessel ischemic demyelination. 2. Nothing acute. Head CT 05/31/18 12:45 CONCLUSION: Negative exam. No change from prior. . Assessment and Plan Plan 62-year-old female presented to the emergency room with complaint of chest pain and mild left-sided weakness that has been ongoing for the past 2 days. Atypical CP Enlarged heart on CXR. EKG and cardiac enzymes negative. Suspect costochondritis. -Will add Tylenol as needed for pain. -Monitor on telemetry. -Check 2D echocardiogram. -Aspirin not given as patient is allergic. Left sided weakness/neuropathy/pain Head CT and MRI unremarkable. Carotid ultrasound without severe stenosis. -neurology consult requested. -PT/OT. History of hypertension Has not been on any medications. -well controlled at this time. DVT PPx: SCDs Discharge Planning: Await neurology eval Progress Note: Quality VTE Deep Vein Thrombosis/Pulmonary Embolism Present on Admission: No
[2018-06-01 15:34] LABS: Hemoglobin A1c 4.8 % (4.3-6.0)
--- NOTE | 2018-06-01 15:46 | ECHRPT ---
Indication: Chest Pain CONCLUSIONS Normal left ventricular size. Mild concentric left ventricular hypertrophy. The left ventricular systolic function is normal with an estimated ejection fraction in the range of 55-60%. Trace mitral valve regurgitation. BP: / HR: Rhythm: MEASUREMENTS (Male / Female) Normal Values Technical Quality:Poor 2D ECHO LV Diastolic Diameter PLAX 3.5 cm 4.2 - 5.9 / 3.9 - 5.3 cm LV Systolic Diameter PLAX 2.0 cm IVS Diastolic Thickness 1.1 cm 0.6 - 1.0 / 0.6 - 0.9 cm LVPW Diastolic Thickness 1.1 cm 0.6 - 1.0 / 0.6 - 0.9 cm LV Relative Wall Thickness 0.6 RV Internal Dim ED PLAX 2.6 cm LVOT Diameter 1.9 cm Aortic Root Diameter 2.7 cm LA Systolic Diameter LX 3.1 cm 3.0 - 4.0 / 2.7 - 3.8 cm DOPPLER AV Peak Velocity 136.0 cm/s AV Peak Gradient 7.4 mmHg LVOT Peak Velocity 110.0 cm/s LVOT Peak Gradient 4.8 mmHg AV Area Cont Eq pk 2.3 cm Mitral E Point Velocity 73.1 cm/s Mitral A Point Velocity 80.5 cm/s Mitral E to A Ratio 0.9 LV E' Lateral Velocity 7.4 cm/s Mitral E to LV E' Lateral Ratio 9.9 LV E' Septal Velocity 5.4 cm/s Mitral E to LV E' Septal Ratio 13.6 PV Peak Velocity 95.0 cm/s PV Peak Gradient 3.6 mmHg FINDINGS LEFT VENTRICLE Normal left ventricular size. Mild concentric left ventricular hypertrophy. The left ventricular systolic function is normal with an estimated ejection fraction in the range of 55-60%. RIGHT VENTRICLE Normal right ventricular size and systolic function. LEFT ATRIUM The left atrial size is normal. RIGHT ATRIUM The right atrial size is normal. ATRIAL SEPTUM Normal atrial septal thickness without atrial level shunting by limited color doppler interrogation. AORTA The aortic root and proximal ascending aorta are normal in size on limited imaging. MITRAL VALVE Trace mitral valve regurgitation. AORTIC VALVE Trileaflet aortic valve. No aortic valve stenosis or regurgitation. TRICUSPID VALVE Structurally normal tricuspid valve. No tricuspid valve stenosis or regurgitation. PULMONARY VALVE The pulmonary valve is not well visualized. VESSELS The inferior vena cava is normal in size. PERICARDIUM No pericardial effusion. Junito Faust MD, FACC (Electronically Signed) Final Date:01 June 2018 15:46
--- NOTE | 2018-06-01 20:15 | US ---
EXAM DATE: 06/01/2018 8:11 PM EST AGE/SEX: 62 years / Female INDICATIONS: Left leg pain. Painful lump. CLINICAL DATA: This is the patient's initial encounter. Patient reports that signs and symptoms have been present for 4 - 6 months and indicates a pain score of 3/10. MEDICAL/SURGICAL HISTORY: . Hypertension. Diverticulitis. Hysterectomy. Cholecystectomy. COMPARISON: No prior exams available for comparison. FINDINGS: A targeted ultrasound examination was performed in the area of pain and tenderness. There is a small apparent sebaceous cyst directly below the skin surface measuring approximately 6 x 6 x 5 mm. This is anechoic with well-defined back wall. There is no color flow. No other focal abnormalities were iden tified. CONCLUSION: 1. Small apparent sebaceous cyst. Electronically signed by: Gustavo Tran MD Board Certified Radiologist 06/01/2018 8:13 PM EST
--- NOTE | 2018-06-01 23:34 | ECG ---
Date Performed: 05/31/2018 Time Performed: 12:39:57 PTAGE: 62 years EKG: Sinus rhythm NORMAL ECG NO PREVIOUS TRACING DOCTOR: Mack Lopez Interpretating Date/Time 06/01/2018 23:32:25
[2018-06-02] MEDS: Acetaminophen 325 MG Tablet PO PRN ×2 (06:09→21:46)
--- NOTE | 2018-06-02 11:52 | P.PNIM ---
Subjective Interval history: Chest pain has resolved. Troponin levels are negative. No further chest pain reported. Echocardiogram is not of acute concern given her age. There is mild tricuspid regurg and left ventricular hypertrophy, no compromise in ejection fraction. Patient still reports that her left side is weak. MRI of brain showed no evidence of CVA. Left leg is more significantly weak compared to left arm but both limbs patient says her we can feel paresthesias. Physical Exam Vital signs: Vital Signs 06/01/18 16:05 06/01/18 20:00 06/01/18 23:49 Temperature 98.5 F 98.3 F 98.3 F Pulse Rate 75 87 69 Respiratory Rate 20 16 16 Blood Pressure 133/65 110/58 L 118/58 L Pulse Oximetry 96 96 96 06/02/18 04:00 06/02/18 07:29 06/02/18 08:00 Temperature 97.9 F 98.4 F Pulse Rate 70 66 68 Respiratory Rate 16 20 Blood Pressure 119/56 L 136/64 Pulse Oximetry 99 96 Intake & Output 06/01/18 06/02/18 06/02/18 18:59 06:59 18:59 Other: Date of Last Bowel Movement 05/31/18 Narrative: GENERAL: NAD, A&Ox3 HEAD: Normocephalic. NECK: Supple, trachea midline. No lymphadenopathy. EYES: No scleral icterus. No injection or drainage. CARDIOVASCULAR: Regular rate and rhythm without murmurs, gallops, or rubs. RESPIRATORY: Breath sounds equal bilaterally. No accessory muscle use. GASTROINTESTINAL: Abdomen soft, non-tender, nondistended. MUSCULOSKELETAL: No cyanosis, or edema. SKIN: Warm and dry. NEURO: Left-sided weakness. Paresthesias reported with palpation of left arm and left leg. Urinary Catheter Management Female External: Cath placed during this visit: no Results Labs CBC & Chem 7: 05/31/18 13:05 05/31/18 13:05 Imaging Imaging: Impressions Lower Extremity Ultrasound 06/01/18 00:00 CONCLUSION: 1. Small apparent sebaceous cyst. Assessment and Plan Plan 62-year-old female presented to the emergency room with complaint of chest pain and mild left-sided weakness that has been ongoing for the past 2 days. Atypical CP Negative ACS workup Echocardiogram shows no signs of acute concern Follow clinically No further chest pain reported Left-sided weakness Neuropathy Unremarkable MRI of brain Neurology following Continue PT Continue OT History of hypertension Follow blood pressures DVT prophylaxis SCDs Progress Note: Quality VTE Deep Vein Thrombosis/Pulmonary Embolism Present on Admission: No
--- NOTE | 2018-06-02 15:17 | HM ---
Date Performed: 05/31/2018 Time Performed: 17:26:00 HOOKUP DATE: 05/31/18 05:26:00 PM Sun ANALYSIS START TIME: 05/31/2018 5:31:00 PM ANALYSIS END TIME: 06/01/2018 5:10:59 PM PATIENT AGE: 62 PATIENT HEIGHT: 62 PATIENT WEIGHT: 170 DRUG LIST: ROOM H86 PATIENT DIAGNOSIS: CHEST PAIN TEST NARRATIVE: The patient's average heart rate was 75 BPM. No episodes of tachycardia wer e noted. No episodes of bradycardia were noted. No pauses exceeding 2.0 seconds were noted. 1 ventricular ectopics, which represented < 1% of the total beat count, were noted. The highest vent ricular ectopic frequency occurred from 06:00 PM to 07:00 PM Sun. During this time 1 VE(s) occurred. Ventricular ectopics were observed as 1 isolated beat(s) only. No couplets or runs were noted. 77 supraventricular ectopics, which represented < 1% of the total beat count, were noted. The highe st supraventricular ectopic frequency occurred from 03:00 PM to 04:00 PM Mon. During this time 38 SV E(s) occurred. No episodes of ST depression (defined as -1.0 mm or more) were noted in channel 1. No episodes of ST depression (defined as -1.0 mm or more) were noted in channel 2. No episodes of ST depression (defined as -1.0 mm or more) were noted in channel 3. No diary maintained TEST INTERPRETATION: No diary was maintained. No significant pauses are present.The underlying r hythm is Sinus rhythm with average rate 75 bpm and range of 57 to 108 bpm.Rare premature atrial and ventricular contracti ons are seen with a single three beat atrial run. Signed by : Michael Brody
--- NOTE | 2018-06-02 20:40 | MR ---
EXAM DATE: 06/02/2018 8:32 PM EST AGE/SEX: 62 years / Female INDICATIONS: Myelopathy. Pain in left side of neck for one day. CLINICAL DATA: This is the patient's initial encounter. Patient reports that signs and symptoms have been present for 1 day and indicates a pain score of 9/10. MEDICAL/SURGICAL HISTORY: Hypertension. Diverticulitis. Cholecystectomy. Hysterectomy. COMPARISON: No prior exams available for comparison. TECHNIQUE: Multiplanar, multisequence MRI examination of the cervical spine was performed without co ntrast. FINDINGS: At C2-3-4 there is no significant abnormality. At C4-5-6-7 there are minimal disc bulges without canal or foraminal stenosis. At C7-T1 there is no significant abnormality. Normal alignment of the cervical spine. No canal stenosis. No cord signal abnormality. CONCLUSION: 1. Mild degenerative change in the cervical spine as above with minimal disc bulges. However no young l stenosis or evidence for direct nerve root compression. No cord signal abnormality. Electronically signed by: Otis Forte MD Board Certified Radiologist 06/02/2018 8:38 PM EST
--- NOTE | 2018-06-03 07:56 | MB ---
cc: Heriberto Galeana MD, PhD DATE: 06/02/2018 REASON FOR CONSULTATION: Left-sided weakness. HISTORY OF PRESENT ILLNESS: The patient is a pleasant 62-year-old woman who states she developed sudden weakness of the left arm and left leg while sitting at [employer] on Friday. She had some slurring of her speech. She also had chest pain and pain radiating up to her neck and down her left arm as well. She states she still has weakness on the left side as well as numbness. PAST MEDICAL HISTORY: History of hysterectomy, hypertension, diverticulitis, cholecystectomy. CURRENT MEDICATIONS: Tylenol. NEUROLOGICAL EXAMINATION: Blood pressure is 136/64, pulse 66, respirations 20, temperature 98.4 degrees Fahrenheit. Higher cortical functions are normal. Cranial nerves are intact. On motor exam, she is weak in the left arm and left leg, rated at 4/5 proximally and distally with normal strength on the right. Reflexes are symmetric. IMAGING STUDIES: CT scan of the brain is normal. MRI of the brain shows chronic changes, no acute change present. No acute stroke is seen. Carotid ultrasound with 50-69% right internal carotid artery stenosis. There is no significant stenosis on the left. Echocardiogram: Ejection fraction 55-60%, normal left ventricular size, mild concentric LVH is seen. Left atrial size normal. Right ventricle size and function normal. Atrial septum is normal with no shunting. Right atrium: Normal. Aortic valve is normal. Mitral valve: Trace regurgitation. Tricuspid valve is normal. Pulmonic valve is not well visualized. LABORATORY DATA: White count is 4700, hemoglobin 13.5, hematocrit 41%, platelets 295,000. PT 10, INR 1, aPTT 28.9. Sodium is 140, potassium 3.9, chloride 110, BUN is 14, creatinine is 0.71. Cholesterol 189, LDL cholesterol is 113, HDL 48.1. STUDIES: Holter monitor: Average heart rate 75 beats per minute, sinus rhythm. No atrial fibrillation is seen. IMPRESSION: Left-sided weakness. No evidence of stroke is seen on the brain MRI. RECOMMENDATIONS: Recommend obtaining MRI of the cervical spine to be sure there is no cervical cord compression. Regarding the right carotid stenosis seen on the ultrasound, this appears to be not clinically significant. However, we will evaluate this further with a CT angiogram. Heriberto Galeana MD, PhD SUSHANT/elias , 06:04 PM , 06:13 PM
[2018-06-03] MEDS: Acetaminophen 325 MG Tablet PO PRN (08:23)
--- NOTE | 2018-06-03 12:01 | P.PNIM ---
Subjective Interval history: Patient requiring walker to walk has been showing signs of improvement through time. Imaging of head and neck are negative thus far. CT angiogram of neck pending. No new complaints from the patient today. Physical Exam Vital signs: Vital Signs 06/02/18 20:00 06/02/18 21:15 06/03/18 02:33 Temperature 97.5 F L 98.5 F Pulse Rate 82 80 67 Respiratory Rate 20 20 20 Blood Pressure 123/58 L 145/67 H Pulse Oximetry 94 L 95 06/03/18 07:30 06/03/18 08:00 Temperature 98.3 F Pulse Rate 72 71 Respiratory Rate 17 Blood Pressure 123/58 L Pulse Oximetry 93 L Intake & Output 06/02/18 06/03/18 06/03/18 18:59 06:59 18:59 Other: # Voids 2 Date of Last Bowel Movement 05/31/18 Narrative: GENERAL: NAD, A&Ox3 HEAD: Normocephalic. NECK: Supple, trachea midline. No lymphadenopathy. EYES: No scleral icterus. No injection or drainage. CARDIOVASCULAR: Regular rate and rhythm without murmurs, gallops, or rubs. RESPIRATORY: Breath sounds equal bilaterally. No accessory muscle use. GASTROINTESTINAL: Abdomen soft, non-tender, nondistended. MUSCULOSKELETAL: No cyanosis, or edema. SKIN: Warm and dry. NEURO: Left-sided weakness. Paresthesias reported with palpation of left arm and left leg. Urinary Catheter Management Female External: Cath placed during this visit: no Results Labs CBC & Chem 7: 05/31/18 13:05 05/31/18 13:05 Imaging Imaging: Impressions Cervical Spine MRI 06/02/18 00:00 CONCLUSION: 1. Mild degenerative change in the cervical spine as above with minimal disc bulges. However no canal stenosis or evidence for direct nerve root compression. No cord signal abnormality. Assessment and Plan Plan 62-year-old female presented to the emergency room with complaint of chest pain and mild left-sided weakness that has been ongoing for the past 2 days. Home health PT and OT will ultimately be needed at time of discharge. Walker will be needed. Hopefully patient continues to improve. CTA of neck pending. Atypical CP Negative ACS workup Echocardiogram shows no signs of acute concern Follow clinically No further chest pain reported Left-sided weakness Neuropathy Unremarkable MRI of brain Neurology following Continue PT Continue OT History of hypertension Follow blood pressures DVT prophylaxis SCDs Progress Note: Quality VTE Deep Vein Thrombosis/Pulmonary Embolism Present on Admission: No
--- NOTE | 2018-06-03 14:14 | CT ---
EXAM DATE: 06/03/2018 11:45 AM EST AGE/SEX: 62 years / Female INDICATIONS: Left side weakness. Right carotid stenosis seen on ultrasound. CLINICAL DATA: This is the patient's initial encounter. Patient reports that signs and symptoms have been present for 1 day and indicates a pain score of 0/10. MEDICAL/SURGICAL HISTORY: Hypertension. Hysterectomy. Cholecystectomy. RADIATION DOSE: 27.94 CTDI (mGy) COMPARISON: [facility] [place], CERVICAL SPINE W/O CONTRAST, 06/02/2018. . TECHNIQUE: Volumetric scanning was performed using a multirow detector CT scanner during bolus infus ion of [id number] Omnipaque 350 (iohexol) nonionic water-soluble contrast as a single exam dose. The data was postprocessed with a variety of visualization algorithms including full-volume maximum i ntensity projection, multiplanar sliding thin-slab reformation, curved-planar reformation, and surfac e-rendering techniques. Using automated exposure control and adjustment of the mA and/or kV accordin g to patient size, radiation dose was kept as low as reasonably achievable to obtain optimal diagnost ic quality images. DICOM format image data is available electronically for review and comparison. Percent stenosis is calculated using the diameter of the stenotic region over the diameter of the nor mal distal internal carotid artery. FINDINGS: Aortic Arch: There is a three-vessel origin of the great vessels from the aorta. Approximately 8 mm distal to the origin of the left subclavian artery, is a short segment moderate stenosis extending 8. 6 mm in length. Right Carotid: The common carotid artery is intact. The carotid bulb has a normal configuration wit hout ulceration or narrowing. The internal carotid artery lumen is smooth without stenosis. The ext ernal carotid artery is intact. Left Carotid: The common carotid artery is intact. The carotid bulb has a normal configuration with out ulceration or narrowing. The internal carotid artery lumen is smooth without significant stenosi s. There is mild atherosclerosis at the carotid bulb noted. The external carotid artery is intact. Vertebrals: The vertebral arteries have a symmetric diameter. No stenotic lesions are seen. CONCLUSION: 1. Moderate approximately 50-60 % stenosis left subclavian artery proximally. 2. Mild atherosclerosis is seen of the left internal carotid artery without evidence for hemodynamic ally significant stenosis. Electronically signed by: Harvinder Sumner MD Board Certified Radiologist 06/03/2018 2:13 PM EST
--- NOTE | 2018-06-03 14:52 | P.DCO ---
Physical Therapy Order: Evaluate and treat, Improve ambulation and Strength and gait training Home Health Nursing Order: Medical education, Signs/symptoms of disease process and Nursing assessment with vital signs Case Management Consult Case Management Consult-Home Health: Yes I have seen patient Justine Monreal on 06/03/18. My clinical findings support the need for the requested home health care services because: Limited mobility due to disease progression, Deconditioned with increased weakness and Limited ability to care for self I certify that my clinical findings support that this patient is homebound because: Unsteady gait/balance, Unsafe to leave home unassisted and Unable to use public transportation
--- NOTE | 2018-06-03 14:54 | P.DS ---
DS: Providers Date of admission: 06/02/18 19:20 Primary care physician: No Primary Care Physician Consults: 06/01/18 13:41 Consult to Neurology Routine Consulting Provider: Heriberto Galeana Reason for Consultation: Left sided weakness and numbness/tingling Notified:: Office Spoke with:: hSereen Date Notified:: 06/01/18 Time Notified:: 13:44 Ordering Provider: LAURA DS: Summary Mrs. Monreal is a 62-year-old female. She is admitted secondary to chest pain and left-sided numbness. Chest pain has resolved. Left-sided numbness is improving but persisting. Paresthesias of the left arm. Paresthesias and some weakness of the left leg. She has been ambulating well with a walker. Neurological workup did not find any etiology such as demyelinization, CVA, bleed, or tumor. CTA of neck is performed today and shows some moderate stenosis without any need for acute clinical intervention. Physical therapy has recommended home health PT to continue at time of discharge. Patient's medically stable and cleared for discharge to home today. Time Spent with Patient Total time spent providing and/or coordinating discharge services: Less than 30 minutes Quality: VTE Deep Vein Thrombosis/Pulmonary Embolism Present on Admission: No Results Labs on day of discharge: Labs from last 24 hours 06/03/18 06/03/18 06/02/18 11:46 07:46 21:51 POC Glucose 159 H 84 99 06/02/18 17:49 POC Glucose 108 Impressions ITS Impressions Carotid Doppler Study 05/31/18 00:00 CONCLUSION: 1. Right Internal Carotid Artery: Minimal noncalcified plaquing in the carotid bulb. Doppler velocities and ratios suggest a 50-69% ICA stenosis. Elevated velocities in the external carotid may represent some degree of stenosis in this location as well. 2. Left Internal Carotid Artery: Minimal noncalcified plaquing in the distal common carotid artery with no sonographic or Doppler findings of a hemodynamically significant stenosis in the internal. Elevated external carotid velocities suggest stenosis in this region, however. 3. Antegrade flow in both vertebrals. Head MRI 05/31/18 00:00 CONCLUSION: 1. Mild chronic changes with some periventricular and scattered deep white matter tracts small vessel ischemic demyelination. 2. Nothing acute. Chest X-Ray 05/31/18 12:39 CONCLUSION: 1. Hypoinflation with minimal atelectasis/scarring in the left lingula. Lungs are otherwise clear. 2. Heart size is upper limits of normal and well compensated Head CT 05/31/18 12:45 CONCLUSION: Negative exam. No change from prior. . Lower Extremity Ultrasound 06/01/18 00:00 CONCLUSION: 1. Small apparent sebaceous cyst. Cervical Spine MRI 06/02/18 00:00 CONCLUSION: 1. Mild degenerative change in the cervical spine as above with minimal disc bulges. However no canal stenosis or evidence for direct nerve root compression. No cord signal abnormality. Neck CTA 06/03/18 00:00 CONCLUSION: 1. Moderate approximately 50-60 % stenosis left subclavian artery proximally. 2. Mild atherosclerosis is seen of the left internal carotid artery without evidence for hemodynamically significant stenosis. Discharge Plan Discharge Disposition Patient Disposition: W/Home Health Service Discharge Condition Condition: Stable Discharge Order Discharge Orders: Discharge Order (Routine); Ordered 06/03/18 Ordered By: Clemente Wyman Discharge Details Anticipated Discharge Date: 06/03/18 Discharge Comment: If ok with Neurology Physicians Team Primary Care Provider: Primary Annika Farris Attending Provider: Clemente Wyman Other Providers: Heriberto Galeana Rxs /Orders / Referrals /Forms Prescriptions: Continue No Known Home Medications RF: 0 Ambulatory Orders / Order Sets / DME: Walker/Adult/Folding (1 each) (Routine) Location: Determined by Patient Ordered By: Clemente Wyman Referrals: Primary Annika Farris [Primary Care Provider] - See Instructions Discharge Instructions Patient Printed Instructions: Chest Pain (ED) Discharge Interventions Interventions: Discharge Planning - Case Management Last Done: 06/01/18 12:34 Status ED Status: Left Department
[2018-06-03 15:30] VITALS: BP 128/74; PULSE 83; RESP 16; TEMP 97.9; O2SAT 99
== END 2018-06-03 17:14 | disposition home health service (06) | DRG 74 ==
LOC: NEDA 12:22 → NEPE 12:22 → NEPHCDU 15:30
PROVIDERS: ADMIT Hospitalist; ATTEND Hospitalist
DX: I07.1 Rheumatic tricuspid insufficiency; M94.0 Chondrocostal junction syndrome [Tietze]; R53.1 Weakness; G62.9 Polyneuropathy, unspecified; Z88.6 Allergy status to analgesic agent; F17.210 Nicotine dependence, cigarettes, uncomplicated; I10 Essential (primary) hypertension
CPT/HCPCS: 70450; 70498; 70551; 71010; 71045; 72141; 76882; 76937; 80053; 80061; 82550; 82948; 82962; 83036; 83735; 84484; 85025; 85610; 85730; 93005; 93225; 93306; 93880; 97110; 97116; 97162; 97166; G8987; G8988; Q9967